=== PATIENT | male | born 1965 | race Caucasian/White ===

== ENCOUNTER 2019-01-20 09:41 | Day surgery (SDC) | payer BC, SELFPAY ==
[2019-01-20] VITALS (7 sets, daily range): BP systolic 97–112; BP diastolic 62–76; PULSE 59–81; RESP 12–16; TEMP 36.4–37.1; O2SAT 94–97; BMI 25.9
[2019-01-20] MEDS: SODIUM CHLORIDE 0.9% 1,000 ML 200 ML IV (10:21)
--- NOTE | 2019-01-20 10:36 | PM.HP.1 ---
History of Present Illness History of Present Illness Date Patient Seen: 01/20/19 Time Patient Seen: 10:36 Chief complaint: [id number] SCREENING COLONOSCOPY Narrative: The patient is a gentleman here for screening colonoscopy due to age. He has never had 1. He is 53 years of age. No family history of colon cancer. Patient History Medical History DVT (deep venous thrombosis) (Acute) Pulmonary embolism (Acute) Social History household members: family Family & Social History Social History: household members family Meds Home Medications and Allergies Home Medications Medication Instructions Recorded Confirmed Type beclomethasone dipropionate 80 mcg INHALATION DAILY 01/20/19 01/20/19 History cetirizine 10 mg PO DAILY 01/20/19 01/20/19 History Allergies Allergy/AdvReac Type Severity Reaction Status Date / Time No Known Drug Allergies Allergy Verified 01/20/19 09:59 Review of Systems Review of Systems ROS Unobtainable: All systems reviewed & are unremarkable except as noted in HPI and below Eyes Comments: Wears glasses Exam Vital Signs (past 8 hours): - 01/20/19 10:02 Temperature 98 F Pulse Rate 63 Respiratory Rate 12 Blood Pressure 109/76 Pulse Oximetry 97 Oxygen Delivery Method Room Air Narrative Exam Narrative: Pleasant cooperative patient no apparent distress. Lungs are clear to auscultation. No rales or rhonchi. Heart regular rate and rhythm no murmur gallop. Abdomen is soft nontender without mass. No obvious hernias. Patient is alert and oriented x3. Assessment & Plan Assessment & Plan narrative: The patient for a screening colonoscopy. I have discussed the procedure with them. Risks of bleeding, perforation which would necessitate major operation, failure to find remove all lesions, the potential tattoo were all discussed. All questions were answered. They wished to proceed.
--- NOTE | 2019-01-20 10:38 | PM.PREOP ---
Pre-operative Note Interval Note History & Physical reviewed/Exam performed by Physician: Yes Changes to H&P: No ASA Class (for procedural sedation): I
--- NOTE | 2019-01-20 10:52 | PM.PREOP ---
Pre-operative Note Interval Note History & Physical reviewed/Exam performed by Physician: Yes Changes to H&P: No ASA Class (for procedural sedation): I
[2019-01-20] MEDS: MIDAZOLAM 5 MG/5 ML VIAL IV (11:15)
--- NOTE | 2019-01-20 11:15 | PM.OP.ENDO ---
Operative Date/Time/Diagnoses Date of procedure: 01/20/19 Time of procedure: 11:15 Pre-op diagnosis: Screening for colon cancer. This is his 1st exam. He is 53. Post-op diagnosis: same (Normal exam) Procedure & Clinicians Study performed: Colonoscopy Same procedure as scheduled: Yes Surgeon: Ramón Laird Procedure Notes SCOAP/Timeout: Perform Procedure in detail: The patient was placed in the left lateral decubitus position and underwent IV sedation directed by the surgeon consisting of fentanyl and Versed. Digital exam was remarkable for mildly enlarged prostate. The scope was inserted and advanced through the rectum into the sigmoid, descending, transverse, and ascending colon. No lesions were seen. The cecum was reached identified by the ileocecal valve and the appendiceal opening. The ileocecal valve was successfully cannulated. The terminal ileum was normal in appearance. The scope was gradually brought out. No Polyps were found. The scope ultimately was retroflexed in the rectum. The appearance was normal go to when. The scope was removed and the patient tolerated the procedure well. The prep was excellent. Scope withdrawal time: 7.5 minutes Sedation minutes: 16 Findings: other findings (Normal exam) Specimen(s): none sent Complications: none Post-procedure Recommendations: Colonscopy in 10 years Follow up: as needed Disposition: PACU
[2019-01-20] MEDS: fentaNYL 250 MCG/5 ML INJ IV (11:17)
== END 2019-01-20 12:01 | disposition home or self-care (01) ==
PROVIDERS: PCP Family Medicine; Visit Provider Specialist
PROC: 0DJD8ZZ Inspection of Lower Intestinal Tract, Via Natural or Artificial Opening Endoscopic (ICD-10-PCS; CPT 45378; principal; 2019-01-20 10:45)
DX: Z12.11 Encounter for screening for malignant neoplasm of colon (principal); Z86.711 Personal history of pulmonary embolism; Z86.718 Personal history of other venous thrombosis and embolism
CPT/HCPCS: 45378; 99152; J2250; J3010

== ENCOUNTER 2020-04-22 15:01 | Emergency (ER) | payer BC, SELFPAY ==
[2020-04-22] VITALS (8 sets, daily range): BP systolic 107–143; BP diastolic 71–83; PULSE 66–72; RESP 11–25; TEMP 36.6; O2SAT 95–100; BMI 25.9
--- NOTE | 2020-04-22 15:09 | ED_ITS ---
HPI - General Adult General Chief complaint: Shortness of Breath/Dyspnea Stated complaint: possible Pulmonary Embolism, sent by doc Time Seen by Provider: 04/22/20 15:01 Source: patient Mode of arrival: Ambulatory Limitations: no limitations History of Present Illness HPI narrative: Patient is a 54-year-old male. Approximately 4 years ago was diagnosed with bilateral pulmonary embolisms in the left lower extremity DVT. He was on anticoagulation for a period of time however has since stopped that treatment. He stated that the very was is that he obtain the DVT and subsequent pulmonary embolisms after having a period of immobility with long travel and a prior injury to his left lower extremity. He also has seasonal allergies. Has seen by an school occupational therapist. Uses inhalers secondary to this. Yesterday was at his school occupational therapist office for evaluation of having dyspnea when he runs. 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 He states it is more than what he would expect for the type of exertion that he is 24th. He also states that this is what he felt like when he had his prior pulmonary embolisms. At the school occupational therapist's office yesterday he had testing performed which showed that his respiratory status was relatively baseline for him. Labs were drawn which was reported to include a D-dimer. The D-dimer was elevated today so he was instructed to come to the emergency department for evaluation. He does have left lower extremity leg swelling occasionally he states this is not new for him. He denies any chest pain. No shortness of breath with regular activities. Related Data Home Medications Medication Instructions Recorded Confirmed beclomethasone dipropionate 80 mcg INHALATION DAILY 01/20/19 01/20/19 cetirizine 10 mg PO DAILY 01/20/19 01/20/19 Previous Rx's Medication Instructions Recorded rivaroxaban [Xarelto] 15 mg PO BID 21 Days #42 tab 04/22/20 Allergies Allergy/AdvReac Type Severity Reaction Status Date / Time No Known Drug Allergies Allergy Verified 01/20/19 09:59 Review of Systems Constitutional Constitutional: Denies fatigue, Denies fever(s) and Denies headache(s) ENT Ears, Nose, Mouth, and Throat: Denies headache(s) Cardiovascular Cardiovascular: Denies chest pain and Reports dyspnea on exertion Respiratory Respiratory: Denies cough and Reports dyspnea on exertion Gastrointestinal Gastrointestinal: Denies abdominal pain, Denies nausea and Denies vomiting Genitourinary Genitourinary: Denies dysuria Genitourinary: Denies dysuria Musculoskeletal Musculoskeletal: Denies arthralgias and Denies myalgias Integumentary/Breasts Skin/Breast: Denies lesions and Denies rash Neurologic Neurologic: Denies behavioral changes and Denies headache(s) Psychiatric Psychiatric: Denies behavioral changes Endocrine Endocrine: Denies fatigue Hematologic/Lymphatic Hematologic/Lymphatic: Denies easy bleeding and Denies easy bruising Allergic/Immunologic Allergic/Immunologic: Denies urticaria Patient History Medical History (Updated 04/22/20 @ 16:59 by Milton Hobbs DO) DVT (deep venous thrombosis) Pulmonary embolism Social History household members: family Smoking Status: Never smoker Exam Initial Vital Signs Initial Vital Signs: Vital Signs Pulse Rate 72 04/22/20 15:05 Blood Pressure 143/83 H 04/22/20 15:05 Pulse Oximetry 99 04/22/20 15:05 Const General: cooperative, healthy appearing, comfortable and well developed Limitations: mental status not altered [facility] Head: normal to inspection and normocephalic Resp Effort & Inspection: normal respiratory effort Auscultation: clear to auscultation bilaterally Cardio Rate: regular rate Rhythm: regular rhythm GI Inspection: non-distended Palpation: soft, No firm and No tender Skin Lesions: no lesions Rashes: no rashes Neuro General: patient alert, patient awake and patient oriented x3 Cognition: normal cognition Speech: speech normal Extrem General: normal to inspection and capillary refill normal Psych Appearance: grossly normal and well kempt Scores GCS Radha coma scale eye opening: Spontaneous [place] coma scale verbal response: Orientated Radha coma scale motor response: Obey commands Radha coma scale total score: 15 Course Orders Ordered: ED Orders 04/22/20 15:13 CT angio chest PE protocol Stat EKG-12 Lead Stat 04/22/20 15:25 Basic Metabolic Panel Stat Complete Blood Count AUTO DIFF Stat NT-proBNP (BNP-Adult 18+) Stat Troponin & CK Cardiac Panel Stat Discontinued Medications Sodium Chloride (Normal Saline 0.9%) 1,000 mls @ 1,000 mls/hr IV BOLUS ONE Stop: 04/22/20 16:11 Last Infusion: 04/22/20 16:39 Dose: 0 mls/hr Documented by: Admin: 04/22/20 15:25 Dose: 1,000 mls/hr Documented by: DANTE Rivaroxaban (Rivaroxaban 10 Mg Tablet) 15 mg PO NOW ONE Stop: 04/22/20 16:57 Vital Signs Vital signs: Vital Signs - 8 hr 04/22/20 15:05 04/22/20 15:15 04/22/20 15:30 Temperature 97.9 F Pulse Rate 72 71 70 Respiratory Rate 18 23 Blood Pressure 143/83 H 143/83 H Pulse Oximetry 99 100 96 04/22/20 15:31 04/22/20 16:02 04/22/20 16:03 Temperature Pulse Rate 72 69 67 Respiratory Rate 22 25 H 11 L Blood Pressure 107/76 107/74 Pulse Oximetry 96 95 98 04/22/20 16:30 Temperature Pulse Rate 66 Respiratory Rate 19 Blood Pressure 107/71 Pulse Oximetry 97 Medical Decision Making Lab Data Lab results reviewed: Yes I reviewed the patient's lab results. Result diagrams: 04/22/20 15:25 04/22/20 15:25 Labs: Lab Results 04/22/20 04/22/20 04/22/20 Range/Units 15:25 15:25 15:25 WBC 7.3 (4.5-11.0) X10^3/uL RBC 4.84 (4.5-5.9) X10^6/uL Hgb 14.5 (13.5-17.5) g/dL Hct 42.8 (41-53) % MCV 88.5 (80-100) fL MCH 30.0 (26-34) PG MCHC 33.9 (30-36) % RDW 13.2 (11.6-14.8) % Plt Count 179 (150-400) X10^3/uL Neut % (Auto) 66.8 (50-75) % Lymph % (Auto) 20.1 L (25-40) % [place] % (Auto) 11.0 (3-14) % Eos % (Auto) 1.7 L (2-4) % Baso % (Auto) 0.4 (0-2) % Neut # (Auto) 4900 (4266-0683) /uL Lymph # (Auto) 1500 (9838-6155) /uL [place] # (Auto) 800 (0-900) /uL Eos # (Auto) 100 (0-450) /uL Baso # (Auto) 0 (0-100) /uL Sodium 137 (137-145) mmol/L Potassium 4.4 (3.4-5.1) mmol/L Chloride 105 (98-107) mmol/L Carbon Dioxide 29 (22-32) mmol/L BUN 22 H (9-20) mg/dL Creatinine 0.92 (0.66-1.25) mg/dL Estimated GFR > 60.0 (>60) mL/min BUN/Creatinine Ratio 23.9 H (6-22) Glucose 109 H (70-100) mg/dL Calcium 9.1 (8.4-10.2) mg/dL Total Creatine Kinase 73 (55-170) U/L CK-MB (CK-2) TNP CK-MB (CK-2) Rel Index TNP Troponin I < 0.012 (0.01-0.034) ng/mL NT-Pro-B Natriuret Pep 46 (<125) pg/mL Imaging Data CT scan - chest: Radiologist's Impression: [address] [id number] Scan ReportSigned Patient: Ramón Meehan KMR#: [id number]: 1965Acct:[id number]/Sex: 54 / MDate of Service: 04/22/20Loc: EDAccession Number: [id number] Procedure: CT angio chest PE protocol Ordering Provider: Milton Hobbs D.O. PROCEDURE: CT ANGIO CHEST PE PROTOCOL INDICATIONS: Chest pain, shortness of breath, tachycardia TECHNIQUE: After the administration of intravenous contrast, 2 mm thick sections acquired from the pulmonary apices to the posterior costophrenic angles. 3-dimensional maximum intensity projection (MIP) coronal and sagittal reformats were then acquired through the thorax. For radiation dose reduction, the following was used: automated exposure control, adjustment of mA and/or kV according to patient size. COMPARISON: [facility], , PVE UNILATERAL LEFT, 09/04/2013, 8:56. [facility], , CHEST 2 VIEW, 12/31/2013, 9:41. FINDINGS: Image quality: Excellent. Pulmonary arteries: Pulmonary arteries are mildly enlarged. There are intraluminal filling defects consistent with central pulmonary embolism involving the right main pulmonary artery, as well as the right and left upper and lower lobe lobar arteries and segmental arteries, the. Lungs and pleura: Mild left basilar infiltrate and atelectasis, suspicious for early pulmonary infarct. No pleural effusions or pneumothorax. Central and peripheral airways are patent. Mediastinum: Heart size is normal, without pericardial effusion. No mediastinal or hilar adenopathy. Thoracic aorta is normal in caliber and enhancement. Esophagus is normal in caliber, without hiatal hernia. Bones and chest wall: No suspicious bony lesions. Ribs and thoracic spine appear intact throughout. There is a prominent Schmorl's node in inferior endplate of T11. Thyroid gland is normal . No axillary or supraclavicular adenopathy. Abdomen: There is a 1.3 x 2.0 cm low-density nodule in segment 6, demonstrating subtle peripheral enhancement suggesting a hemangioma. IMPRESSION: 1. Extensive bilateral pulmonary emboli, involving the right main as well as bilateral lobar and segmental arteries. 2. Mild left lower lobe infiltrate and atelectasis suspicious for early pulmonary infarct. 3. A 1.3 x 2.0 cm low-density nodule in segment 6 of the liver demonstrating subtle peripheral enhancement suggesting a hemangioma. Alternatively, this could be a cyst. A neoplastic nodule is felt less likely. Nonurgent ultrasound follow-up is suggested. The result was discussed with Dr. Hobbs. Dictated by: Isabel Krueger M.D. on 04/22/2020 at 16:08 Approved by: Isabel Krueger M.D. on 04/22/2020 at 16:23 ECG Data Attestation: I personally reviewed and interpreted this ECG as follows: Prior ECG tracings: not available for review Interpretation: Sinus rhythm Ventricular rate is 65 Normal axis Normal QRS Normal QTC Early repolarization MDM Narrative Medical decision making narrative: Patient does have what appear to be new bilateral pulmonary embolisms. Is the 2nd time that this has happened to him. States the last time they had a difficult time keeping his INR within therapeutic range so he was switched to Xarelto. He would like to just start with Xarelto today his troponin was negative. BNP was negative. He is not dyspneic when he is walking around. He has no chest pain. His only symptoms occur when he is running up a hill. I feel patient can be discharged home to follow-up with his primary doctor. He has a PESI score of 63 which is very low risk. Patient was given a 1st dose of Xarelto here in the emergency department prescription for the next 21 days. He is informed that he needed a talk with his primary doctor about a prescription for the 1 time a day dosing. He is g sofíaalexx return precautions. He expressed understanding and agreement. Discharge Plan Departure Patient Disposition: Home Clinical Impression: Liver nodule Pulmonary embolism Qualifiers: Pulmonary embolism type: unspecified Chronicity: acute Acute cor pulmonale presence: without acute cor pulmonale Qualified Code(s): I26.99 - Other pulmonary embolism without acute cor pulmonale Instructions: DI for Pulmonary Embolism Activity Restrictions/Additional Instructions: The current prescription for Xarelto should be taken 2 times a day for the next 21 days. After that the dosage will change and it will be taking only 1 time a day. Please follow-up with your primary doctor so that to the new 1 time a day dosage can be ordered. There is also an incidental finding of a liver nodule on your CT scan. Please contact your primary doctor for follow-up of this. Return to the emergency department for any new or worsening symptoms Prescriptions: New Xarelto 15 mg tablet 15 mg PO BID 21 Days Qty: 42 RF: 0 No Action cetirizine 10 mg Tablet 10 mg PO DAILY RF: 0 beclomethasone dipropionate 80 mcg/actuation Hfa Aerosol Breath Activated 80 mcg INHALATION DAILY RF: 0 Referrals: Barbara Hassan MD [Primary Care Provider] -
--- NOTE | 2020-04-22 15:13 | DI.CT.S_ITS ---
PROCEDURE: CT ANGIO CHEST PE PROTOCOL INDICATIONS: Chest pain, shortness of breath, tachycardia TECHNIQUE: After the administration of intravenous contrast, 2 mm thick sections acquired from the pulmonary apices to the posterior costophrenic angles. 3-dimensional maximum intensity projection (MIP) coronal and sagittal reformats were then acquired through the thorax. For radiation dose reduction, the following was used: automated exposure control, adjustment of mA and/or kV according to patient size. COMPARISON: [facility], , PVE UNILATERAL LEFT, 09/04/2013, 8:56. [facility], , CHEST 2 VIEW, 12/31/2013, 9:41. FINDINGS: Image quality: Excellent. Pulmonary arteries: Pulmonary arteries are mildly enlarged. There are intraluminal filling defects consistent with central pulmonary embolism involving the right main pulmonary artery, as well as the right and left upper and lower lobe lobar arteries and segmental arteries, the. Lungs and pleura: Mild left basilar infiltrate and atelectasis, suspicious for early pulmonary infarct. No pleural effusions or pneumothorax. Central and peripheral airways are patent. Mediastinum: Heart size is normal, without pericardial effusion. No mediastinal or hilar adenopathy. Thoracic aorta is normal in caliber and enhancement. Esophagus is normal in caliber, without hiatal hernia. Bones and chest wall: No suspicious bony lesions. Ribs and thoracic spine appear intact throughout. There is a prominent Schmorl's node in inferior endplate of T11. Thyroid gland is normal . No axillary or supraclavicular adenopathy. Abdomen: There is a 1.3 x 2.0 cm low-density nodule in segment 6, demonstrating subtle peripheral enhancement suggesting a hemangioma. IMPRESSION: 1. Extensive bilateral pulmonary emboli, involving the right main as well as bilateral lobar and segmental arteries. 2. Mild left lower lobe infiltrate and atelectasis suspicious for early pulmonary infarct. 3. A 1.3 x 2.0 cm low-density nodule in segment 6 of the liver demonstrating subtle peripheral enhancement suggesting a hemangioma. Alternatively, this could be a cyst. A neoplastic nodule is felt less likely. Nonurgent ultrasound follow-up is suggested. The result was discussed with Dr. Hobbs. Dictated by: Isabel Krueger M.D. on 04/22/2020 at 16:08 Approved by: Isabel Krueger M.D. on 04/22/2020 at 16:23
[2020-04-22] MEDS: SODIUM CHLORIDE 0.9% 1,000 ML 1000 ML IV (15:25)
[2020-04-22 15:36] LABS: Add Manual Diff / Slide Review NO; Basophils Absolute Auto 0 /uL (0-100); Basophils Percent Auto 0.4 % (0-2); Eosinophils Absolute Auto 100 /uL (0-450); Eosinophils Percent Auto 1.7 % (2-4); Hematocrit 42.8 % (41-53); Hemoglobin 14.5 g/dL (13.5-17.5); Lymphocytes Absolute Auto 1500 /uL (1100-4500); Lymphocytes Percent Auto 20.1 % (25-40); Mean Corpuscular HGB Conc 33.9 % (30-36); Mean Corpuscular Volume 88.5 fL (80-100); Monocytes Absolute Auto 800 /uL (0-900); Neutrophils Absolute Auto 4900 /uL (1500-7000); Neutrophils Percent Auto 66.8 % (50-75); Platelet Count 179 X10^3/uL (150-400); Red Blood Cell Count 4.84 X10^6/uL (4.5-5.9); Red Cell Distribution Width 13.2 % (11.6-14.8); White Blood Cell Count 7.3 X10^3/uL (4.5-11.0)
[2020-04-22 15:48] LABS: Creatine Kinase 73 U/L (55-170)
[2020-04-22 15:49] LABS: BUN Creatinine Ratio 23.9 (6-22); Blood Urea Nitrogen 22 mg/dL (9-20); Calcium 9.1 mg/dL (8.4-10.2); Carbon Dioxide 29 mmol/L (22-32); Chloride 105 mmol/L (98-107); Estimated Glomerular Filt Rate > 60.0 mL/min (>60); Glucose 109 mg/dL (70-100); HEMOLYSIS 31 (0-50); Potassium 4.4 mmol/L (3.4-5.1); Sodium 137 mmol/L (137-145)
[2020-04-22 16:01] LABS: NT-proBNP (BNP-Adult 18+) 46 pg/mL (<125); Troponin I < 0.012 ng/mL (0.01-0.034)
[2020-04-22] MEDS: RIVAROXABAN 10 MG TABLET 15 MG PO (17:06)
== END 2020-04-22 17:11 | disposition home or self-care (01) ==
PROVIDERS: Emergency Provider Emergency Medicine; PCP Family Medicine
DX: I26.99 Other pulmonary embolism without acute cor pulmonale (principal); I82.402 Acute embolism and thrombosis of unspecified deep veins of left lower extremity; K76.89 Other specified diseases of liver
CPT/HCPCS: 36415; 71275; 80048; 82550; 83880; 84484; 85025; 93005; 93010; 96360; 99284

== ENCOUNTER → 2021-07-31 08:23 | Outpatient (CLI) | payer BC, SELFPAY ==
[2021-07-31 08:55] LABS: BUN Creatinine Ratio 20.6 (6-22); Blood Urea Nitrogen 21 mg/dL (9-20); Calcium 8.9 mg/dL (8.4-10.2); Carbon Dioxide 29 mmol/L (22-32); Chloride 109 mmol/L (98-107); Estimated Glomerular Filt Rate > 60.0 mL/min (>60); Glucose 102 mg/dL (70-100); HEMOLYSIS < 15 (0-50); Potassium 4.4 mmol/L (3.4-5.1); Sodium 139 mmol/L (137-145)
== END ==
PROVIDERS: PCP Family Medicine; Referring Provider Internal Medicine Hematology; Visit Provider Internal Medicine Hematology
DX: Z86.711 Personal history of pulmonary embolism (principal)
CPT/HCPCS: 36415; 80048

== ENCOUNTER → 2021-12-21 09:22 | Outpatient (CLI) | payer BC, SELFPAY ==
[2021-12-21 15:13] LABS: Alanine Aminotransferase 24 IU/L (<50); Albumin Globulin Ratio 1.3 (1.0-2.8); Alkaline Phosphatase 68 U/L (38-126); Aspartate Aminotransferase 27 IU/L (17-59); BUN Creatinine Ratio 14.6 (6-22); Bilirubin Total 0.4 mg/dL (0.2-1.3); Blood Urea Nitrogen 15 mg/dL (9-20); Calcium 9.2 mg/dL (8.4-10.2); Carbon Dioxide 31 mmol/L (22-32); Chloride 106 mmol/L (98-107); Cholesterol 187 mg/dL (140-199); Estimated Glomerular Filt Rate > 60 mL/min (>60); Globulin 3.1 g/dL (1.7-4.1); Glucose 99 mg/dL (70-100); HDL Cholesterol 52 mg/dL (40-60); HEMOLYSIS < 15 (0-50); LDL Cholesterol Calculated 122 mg/dL (<100); Potassium 4.6 mmol/L (3.4-5.1); Sodium 139 mmol/L (137-145); Total Protein 7.1 g/dL (6.3-8.2); Triglycerides 63 mg/dL (35-150)
[2021-12-21 15:41] LABS: Prostate Specific Antigen Scrn 0.406 ng/mL (0.1-4.0)
== END ==
PROVIDERS: PCP Physician Assistant; Referring Provider Physician Assistant; Visit Provider Physician Assistant
DX: L50.8 Other urticaria (principal); Z12.5 Encounter for screening for malignant neoplasm of prostate
CPT/HCPCS: 36415; 80053; 80061; G0103

== ENCOUNTER → 2022-07-25 10:39 | Outpatient (CLI) | payer BC, SELFPAY ==
[2022-07-25 19:36] LABS: BUN Creatinine Ratio 18.1 (6-22); Blood Urea Nitrogen 19 mg/dL (9-20); Calcium 9.4 mg/dL (8.4-10.2); Carbon Dioxide 29 mmol/L (22-32); Chloride 104 mmol/L (98-107); Estimated Glomerular Filt Rate > 60 mL/min (>60); Glucose 87 mg/dL (70-100); HEMOLYSIS < 15 (0-50); Potassium 4.5 mmol/L (3.4-5.1); Sodium 140 mmol/L (137-145)
== END ==
PROVIDERS: PCP Physician Assistant; Visit Provider Internal Medicine Hematology
DX: I82.90 Acute embolism and thrombosis of unspecified vein (principal)
CPT/HCPCS: 80048

== ENCOUNTER 2023-02-17 04:17 | Emergency (ER) | payer BC, SELFPAY ==
[2023-02-17] VITALS (13 sets, daily range): BP systolic 99–129; BP diastolic 52–66; PULSE 42–61; RESP 9–21; TEMP 37; O2SAT 93–100; BMI 26.2
--- NOTE | 2023-02-17 04:57 | DI.CT.S_ITS ---
PROCEDURE: CT ABDOMEN PELVIS W CON INDICATIONS: Epigastric pain. TECHNIQUE: After the administration of oral and IV contrast, axial sections were acquired from the lung bases to the pubic symphysis. Coronal and sagittal reformats were performed. For radiation dose reduction, the following was used: automated exposure control, adjustment of mA and/or kV according to patient size. COMPARISON: [facility], CT, CT ANGIO CHEST PE PROTOCOL, 04/22/2020, 15:39. [facility], US, US ABDOMEN LIMITED, 02/17/2023, 7:12. FINDINGS: Image quality: Excellent. Lung bases: Unremarkable. Heart: No significant findings. ABDOMEN: Liver: An enlarged, mildly fatty liver is seen. No suspicious liver lesion is seen. Gallbladder: Minimal irregularity is seen in the gallbladder. Biliary ducts: Unremarkable. Pancreas: Unremarkable. Spleen: Unremarkable. Adrenal Glands: Unremarkable. Kidneys and Ureters: Unremarkable. Stomach and Bowel: Stomach, small bowel loops, and colon are unremarkable. A normal appendix is noted. Colonic diverticulosis is seen, without findings of active diverticulitis. Peritoneum: No abnormal intraperitoneal fluid. No free air. Ventral Wall: No hernia. Abdominal Nodes: No retroperitoneal or mesenteric adenopathy by size criteria. Vessels: Aorta and inferior vena cava are normal in size. PELVIS: Pelvic Organs: Unremarkable. Bladder: Unremarkable. Pelvic Nodes: No enlarged lymph nodes. Miscellaneous: No inguinal hernias are seen. Bones: Minimal focal L5-S1 degenerative change is seen, with milder degenerative changes seen elsewhere. IMPRESSION: Minimal irregularity is seen of the gallbladder. Additional findings: Normal appendix Diverticulosis, without active diverticulitis Minimal focal L5-S1 degenerative change Note: No significant discrepancy from the preliminary report. Dictated by: Gera Harp M.D. on 02/17/2023 at 9:04 Approved by: Gera Harp M.D. on 02/17/2023 at 9:08
[2023-02-17 05:01] LABS: Add Manual Diff / Slide Review NO; Basophils Absolute Auto 0 /uL (0-100); Basophils Percent Auto 0.5 % (0-2); Eosinophils Absolute Auto 0 /uL (0-450); Eosinophils Percent Auto 0.3 % (2-4); Hematocrit 38.7 % (41-53); Hemoglobin 13.4 g/dL (13.5-17.5); Lymphocytes Absolute Auto 1000 /uL (1100-4500); Lymphocytes Percent Auto 16.6 % (25-40); Mean Corpuscular HGB Conc 34.7 % (30-36); Mean Corpuscular Hemoglobin 30.2 PG (26-34); Monocytes Absolute Auto 400 /uL (0-900); Monocytes Percent Auto 6.1 % (3-14); Neutrophils Absolute Auto 4600 /uL (1500-7000); Neutrophils Percent Auto 76.5 % (50-75); Platelet Count 216 X10^3/uL (150-400); Red Blood Cell Count 4.45 X10^6/uL (4.5-5.9); Red Cell Distribution Width 13.2 % (11.6-14.8); White Blood Cell Count 6.1 X10^3/uL (4.5-11.0)
[2023-02-17] MEDS: ONDANSETRON 4 MG/2 ML INJ IV (05:08)
[2023-02-17] MEDS: HYDROMORPHONE 1 MG INJ IV (05:09)
[2023-02-17 05:10] LABS: Alanine Aminotransferase 51 IU/L (<50); Albumin 3.8 g/dL (3.5-5.0); Albumin Globulin Ratio 1.2 (1.0-2.8); Alkaline Phosphatase 64 U/L (38-126); Aspartate Aminotransferase 50 IU/L (17-59); BUN Creatinine Ratio 23.8 (6-22); Bilirubin Total 0.5 mg/dL (0.2-1.3); Blood Urea Nitrogen 24 mg/dL (9-20); Calcium 9.4 mg/dL (8.4-10.2); Carbon Dioxide 21 mmol/L (22-32); Chloride 107 mmol/L (98-107); Estimated Glomerular Filt Rate > 60 mL/min (>60); Globulin 3.1 g/dL (1.7-4.1); Glucose 135 mg/dL (70-100); HEMOLYSIS 40 (0-50); Lipase 72 U/L (23-300); Potassium 4.1 mmol/L (3.4-5.1); Sodium 137 mmol/L (137-145); Total Protein 6.9 g/dL (6.3-8.2)
--- NOTE | 2023-02-17 05:49 | ED_ITS ---
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 Reports that he was feeling fine ate same dinner however he feeling nauseous and having uncontrolled abdominal pain. He denies any flank pain. No actual vomiting no chest pain no change in bowel habits. Related Data Home Medications Medication Instructions Recorded Confirmed beclomethasone dipropionate 80 80 mcg inhalation DAILY 01/20/19 12/05/21 mcg/actuation HFA breath activated aerosol rivaroxaban 10 mg tablet 10 mg PO DAILY 12/04/21 12/05/21 omalizumab 150 mg/mL subcutaneous 150 mg SUBCUT Q6W 12/05/21 12/05/21 syringe Previous Rx's Medication Instructions Recorded atovaquone 250 mg-proguanil 100 mg See Rx Instructions PO .COMPLEX 12/05/21 tablet #30 tabs scopolamine base 1 mg over 3 days 1 patch transdermal Q3D PRN motion 04/03/22 transdermal patch sickness #24 ea hydrocodone 5 mg-acetaminophen 325 1 tab PO Q6H PRN pain #10 tabs 02/17/23 mg tablet ondansetron 4 mg disintegrating 4 mg PO Q8H PRN nausea and 02/17/23 tablet vomiting #10 tabs Allergies Allergy/AdvReac Type Severity Reaction Status Date / Time No Known Drug Allergies Allergy Verified 01/20/19 09:59 Review of Systems <Grecia Krishnamurthy DO - Last Filed: 02/18/23 03:16> Review of Systems ROS Unobtainable: All systems reviewed & are unremarkable except as noted in HPI and below Patient History <Grecia Krishnamurthy DO - Last Filed: 02/18/23 03:16> Medical History Screening for ischemic heart disease Screening for lipid disorders Screening PSA (prostate specific antigen) Encounter for medical examination to establish care (~04/25/18) Encounter for screening colonoscopy Travel advice encounter Pulmonary embolism DVT (deep venous thrombosis) Social History household members: family Smoking Status: Never smoker Smoking Status: Never smoker alcohol intake frequency: a few times a month Substance Use Type: does not use Exam <Grecia Krishnamurthy DO - Last Filed: 02/18/23 03:16> Initial Vital Signs Initial Vital Signs: Vital Signs Temperature 98.6 F 02/17/23 04:26 Pulse Rate 49 L 02/17/23 04:26 Respiratory Rate 18 02/17/23 04:26 Blood Pressure 129/61 02/17/23 04:26 Pulse Oximetry 100 02/17/23 04:26 Oxygen Delivery Method Room Air 02/17/23 04:26 GENERAL: Alert 57-year-old male appears uncomfortable HEENT: Head atraumatic,EOMI, pupils reactive, face symmetric, moist mucous membranes CARDIOVASCULAR: Regular rate and rhythm without murmurs, rubs or gallops. RESPIRATORY: Breath sounds equal bilaterally, no wheezes rales or rhonchi. ABDOMEN: Soft, mild lower abdominal discomfort no rebound no distention : No CVA tenderness EXTREMITIES: Normal range of motion, no clubbing or edema. Neurovascularly intact NEUROLOGICAL: Alert and oriented x4.Normal gait and speech. SKIN: Warm, dry, no laceration, no petechiae, no rashes or lesions. <Moon Diallo MD - Last Filed: 02/17/23 09:41> Initial Vital Signs Initial Vital Signs: Vital Signs Temperature 98.6 F 02/17/23 04:26 Pulse Rate 49 L 02/17/23 04:26 Respiratory Rate 18 02/17/23 04:26 Blood Pressure 129/61 02/17/23 04:26 Pulse Oximetry 100 02/17/23 04:26 Oxygen Delivery Method Room Air 02/17/23 04:26 Course <Grecia Krishnamurthy DO - Last Filed: 02/18/23 03:16> Orders Ordered: Discontinued Medications Hydromorphone HCl (Hydromorphone 1 Mg Inj) 1 mg IV NOW ONE Stop: 02/17/23 04:52 Last Admin: 02/17/23 05:09 Dose: 1 mg Documented By: GC Ketorolac Tromethamine (Ketorolac 30 Mg/Ml Vial) 15 mg IV NOW ONE Stop: 02/17/23 09:39 Last Admin: 02/17/23 09:50 Dose: 15 mg Documented By: SHAHLA Ondansetron HCl (Ondansetron 4 Mg/2 Ml Inj) 4 mg IV NOW ONE Stop: 02/17/23 04:52 Last Admin: 02/17/23 05:08 Dose: 4 mg Documented By: RODNEY Vital Signs Vital signs: Vital Signs - 8 hr 02/17/23 04:26 02/17/23 05:33 02/17/23 05:35 Temperature 98.6 F Pulse Rate 49 L 46 L 48 L Respiratory Rate 18 9 L Blood Pressure 129/61 Pulse Oximetry 100 94 93 Oxygen Delivery Method Room Air 02/17/23 05:35 02/17/23 06:00 02/17/23 06:00 Temperature Pulse Rate 53 L Respiratory Rate 17 Blood Pressure 109/60 101/62 Pulse Oximetry 95 Oxygen Delivery Method 02/17/23 06:41 02/17/23 06:42 02/17/23 06:42 Temperature Pulse Rate 42 L 47 L Respiratory Rate Blood Pressure 119/65 Pulse Oximetry 100 100 Oxygen Delivery Method 02/17/23 07:00 02/17/23 07:00 02/17/23 07:33 Temperature Pulse Rate 49 L 61 Respiratory Rate 21 21 Blood Pressure 112/66 Pulse Oximetry 97 Oxygen Delivery Method 02/17/23 07:35 02/17/23 07:35 Temperature Pulse Rate 45 L Respiratory Rate 13 Blood Pressure 118/62 Pulse Oximetry Oxygen Delivery Method <Moon Diallo MD - Last Filed: 02/17/23 09:41> Orders Ordered: Discontinued Medications Hydromorphone HCl (Hydromorphone 1 Mg Inj) 1 mg IV NOW ONE Stop: 02/17/23 04:52 Last Admin: 02/17/23 05:09 Dose: 1 mg Documented By: RODNEY Ketorolac Tromethamine (Ketorolac 30 Mg/Ml Vial) 15 mg IV NOW ONE Stop: 02/17/23 09:39 Last Admin: 02/17/23 09:50 Dose: 15 mg Documented By: SHAHLA Ondansetron HCl (Ondansetron 4 Mg/2 Ml Inj) 4 mg IV NOW ONE Stop: 02/17/23 04:52 Last Admin: 02/17/23 05:08 Dose: 4 mg Documented By: GC Vital Signs Vital signs: Vital Signs - 8 hr 02/17/23 04:26 02/17/23 05:33 02/17/23 05:35 Temperature 98.6 F Pulse Rate 49 L 46 L 48 L Respiratory Rate 18 9 L Blood Pressure 129/61 Pulse Oximetry 100 94 93 Oxygen Delivery Method Room Air 02/17/23 05:35 02/17/23 06:00 02/17/23 06:00 Temperature Pulse Rate 53 L Respiratory Rate 17 Blood Pressure 109/60 101/62 Pulse Oximetry 95 Oxygen Delivery Method 02/17/23 06:41 02/17/23 06:42 02/17/23 06:42 Temperature Pulse Rate 42 L 47 L Respiratory Rate Blood Pressure 119/65 Pulse Oximetry 100 100 Oxygen Delivery Method 02/17/23 07:00 02/17/23 07:00 02/17/23 07:33 Temperature Pulse Rate 49 L 61 Respiratory Rate 21 21 Blood Pressure 112/66 Pulse Oximetry 97 Oxygen Delivery Method 02/17/23 07:35 02/17/23 07:35 Temperature Pulse Rate 45 L Respiratory Rate 13 Blood Pressure 118/62 Pulse Oximetry Oxygen Delivery Method MDM - Abdominal Pain <Grecia Krishnamurthy, DO - Last Filed: 02/18/23 03:16> Lab Data 02/17/23 04:35 02/17/23 04:35 Labs: Lab Results 02/17/23 Range/Units 04:35 WBC 6.1 (4.5-11.0) X10^3/uL RBC 4.45 L (4.5-5.9) X10^6/uL Hgb 13.4 L (13.5-17.5) g/dL Hct 38.7 L (41-53) % MCV 87.0 (80-100) fL MCH 30.2 (26-34) PG MCHC 34.7 (30-36) % RDW 13.2 (11.6-14.8) % Plt Count 216 (150-400) X10^3/uL Neut % (Auto) 76.5 H (50-75) % Lymph % (Auto) 16.6 L (25-40) % Nicollet % (Auto) 6.1 (3-14) % Eos % (Auto) 0.3 L (2-4) % Baso % (Auto) 0.5 (0-2) % Neut # (Auto) 4600 (4279-2665) /uL Lymph # (Auto) 1000 L (3973-6948) /uL Nicol[place] # (Auto) 400 (0-900) /uL Eos # (Auto) 0 (0-450) /uL Baso # (Auto) 0 (0-100) /uL Sodium 137 (137-145) mmol/L Potassium 4.1 (3.4-5.1) mmol/L Chloride 107 (98-107) mmol/L Carbon Dioxide 21 L (22-32) mmol/L BUN 24 H (9-20) mg/dL Creatinine 1.01 (0.66-1.25) mg/dL Estimated GFR > 60 (>60) mL/min BUN/Creatinine Ratio 23.8 H (6-22) Glucose 135 H (70-100) mg/dL Calcium 9.4 (8.4-10.2) mg/dL Total Bilirubin 0.5 (0.2-1.3) mg/dL AST 50 (17-59) IU/L ALT 51 H (<50) IU/L Alkaline Phosphatase 64 (38-126) U/L Total Protein 6.9 (6.3-8.2) g/dL Albumin 3.8 (3.5-5.0) g/dL Globulin 3.1 (1.7-4.1) g/dL Albumin/Globulin Ratio 1.2 (1.0-2.8) Lipase 72 (23-300) U/L Point of care testing: Urine Dip Bedside Urine Glucose Negative Bedside Urine Bilirubin - Negative Bedside Urine Ketone + 15 Urine Specific [place] 1.005 Bedside Urine Occult Blood - Negative Bedside Urine pH 7.5 Bedside Urine Protein - Negative Bedside Urine Urobilinogen - Negative Bedside Urine Nitrite - Negative Bedside Urine Leukocytes - Negative Esterase MDM Narrative Medical decision making narrative: Patient 57-year-old male 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 Nursing reports no he was riding in pain however by the time I evaluated him he has received pain in his overall much more comfortable. Blood work has been reviewed and is overall reassuring. Bicarb slightly low at 21. Liver enzymes bilirubin within normal limits. No NOMAN. CT is pending Patient signed out to Dr. Diallo <Moon Diallo MD - Last Filed: 02/17/23 09:41> Lab Data Labs: Lab Results 02/17/23 Range/Units 04:35 WBC 6.1 (4.5-11.0) X10^3/uL RBC 4.45 L (4.5-5.9) X10^6/uL Hgb 13.4 L (13.5-17.5) g/dL Hct 38.7 L (41-53) % MCV 87.0 (80-100) fL MCH 30.2 (26-34) PG MCHC 34.7 (30-36) % RDW 13.2 (11.6-14.8) % Plt Count 216 (150-400) X10^3/uL Neut % (Auto) 76.5 H (50-75) % Lymph % (Auto) 16.6 L (25-40) % Nicollet % (Auto) 6.1 (3-14) % Eos % (Auto) 0.3 L (2-4) % Baso % (Auto) 0.5 (0-2) % Neut # (Auto) 4600 (0151-3542) /uL Lymph # (Auto) 1000 L (7948-6144) /uL Nicollet # (Auto) 400 (0-900) /uL Eos # (Auto) 0 (0-450) /uL Baso # (Auto) 0 (0-100) /uL Sodium 137 (137-145) mmol/L Potassium 4.1 (3.4-5.1) mmol/L Chloride 107 (98-107) mmol/L Carbon Dioxide 21 L (22-32) mmol/L BUN 24 H (9-20) mg/dL Creatinine 1.01 (0.66-1.25) mg/dL Estimated GFR > 60 (>60) mL/min BUN/Creatinine Ratio 23.8 H (6-22) Glucose 135 H (70-100) mg/dL Calcium 9.4 (8.4-10.2) mg/dL Total Bilirubin 0.5 (0.2-1.3) mg/dL AST 50 (17-59) IU/L ALT 51 H (<50) IU/L Alkaline Phosphatase 64 (38-126) U/L Total Protein 6.9 (6.3-8.2) g/dL Albumin 3.8 (3.5-5.0) g/dL Globulin 3.1 (1.7-4.1) g/dL Albumin/Globulin Ratio 1.2 (1.0-2.8) Lipase 72 (23-300) U/L Point of care testing: Urine Dip Bedside Urine Glucose Negative Bedside Urine Bilirubin - Negative Bedside Urine Ketone + 15 Urine Specific [place] 1.005 Bedside Urine Occult Blood - Negative Bedside Urine pH 7.5 Bedside Urine Protein - Negative Bedside Urine Urobilinogen - Negative Bedside Urine Nitrite - Negative Bedside Urine Leukocytes - Negative Esterase MDM Narrative Medical decision making narrative: Patient 57-year-old male 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 Nursing reports no he was riding in pain however by the time I evaluated him he has received pain in his overall much more comfortable. Blood work has been reviewed and is overall reassuring. Bicarb slightly low at 21. Liver enzymes bilirubin within normal limits. No NOMAN. CT is pending Patient signed out to Dr. Diallo Patient is independently examined, labs reviewed studies reviewed CC: Abdominal pain Complicating co-morbidities: Prior pulmonary embolism Differential considered: Bowel obstruction, constipation, urinary tract infection, kidney stone, pancreatitis, gallbladder disease. 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 Pertinent findings: CBC is unremarkable Chemistries show slight increased ALT at 51 remainder of liver studies are unremarkable. Kidney function is appropriate. BUN is slightly elevated Imaging studies independently reviewed: CT suggest possible early acute cholecystitis. No other acute processes are appreciated Ultrasound demonstrates a nondilated gallbladder without stones or sludge and normal gallbladder wall thickness without any pericholecystic fluid. Consultations: Treatments: Parenteral Dilaudid Zofran and Toradol Re-evaluations: 930 patient is re-evaluated. Abdomen is still slightly tender but certainly not surgical. Heart and lungs are benign. He notes that he feels some mild discomfort but certainly not as much as previously. Notes that he did have 4 episodes of very loose stool not described as watery diarrhea. When we discussed the possibility of zoonotic infections he notes that he is the majority of diarrhea associated with some of the common diagnoses and this seems quite a bit different and not nearly as severe. He is tolerating liquids at time of discharge Discussion: We discussed options. In light of pain essentially controlled no evidence of diverticulitis, appendicitis, bowel obstruction, acute colitis, cholecystitis, pancreatitis will opt to have him go home. Will give him a prescription of Zofran to use if needed. Will hold on additional pain medications with suggestions to return to the emergency department if pain does increase. [place] [facility] [place] worsen. All findings reviewed with both patient and his and with shared decision-making we all felt that this was a safe and reasonable plan for discharge. Discharge Plan Departure Patient Disposition: Home Clinical Impression: Abdominal pain Qualifiers: Abdominal location: generalized Qualified Code(s): R10.84 - Generalized abdominal pain Instructions: DI for Abdominal Pain-Adult Activity Restrictions/Additional Instructions: Thank you for coming in I am sorry that you are experiencing such severe abdominal pain. Fortunately, I did not find any life-threatening abnormalities on your workup. Specifically, there is no evidence of bacterial infection, you do not have acute gallbladder disease, there is no appendicitis, colitis, diverticulitis or other bowel abnormality. At this time all of the life-threatening and acute surgical diagnoses have been ruled out. I am going to suggest that you go home. I will send you home with a small prescription for Zofran to help with nausea should that recur. I am specifically not going to send you home with any additional pain medication. If you have recurrent pain, fevers any blood in your stool or new findings you do need to return to the emergency department for further evaluation Prescriptions: New ondansetron 4 mg tablet,disintegrating 4 mg PO Q8H PRN (Reason: nausea and vomiting) Qty: 10 0RF No Action scopolamine base 1 mg over 3 days patch 3 day 1 patch transdermal Q3D PRN (Reason: motion sickness) Qty: 24 0RF beclomethasone dipropionate 80 mcg/actuation Hfa Aerosol Breath Activated 80 mcg INHALATION DAILY Rx Instructions: 2 puffs hydrocodone-acetaminophen 5-325 mg tablet 1 tab PO Q6H PRN (Reason: pain) Qty: 10 0RF omalizumab 150 mg/mL syringe 150 mg SUBCUT Q6W atovaquone-proguanil 250-100 mg tablet See Rx Instructions PO .COMPLEX Qty: 30 0RF Rx Instructions: take 1 tab once daily x1 day before exposure, during time in area, and x7 days after leaving area PO rivaroxaban 10 mg tablet 10 mg PO DAILY Rx Instructions: Take 1 tablet (10 mg) by mouth daily. REFILL 3. 06/12/2021 Referrals: Sonam Cisse PA-C [Primary Care Provider] - Stand Alone Forms: Patient Portal/API
--- NOTE | 2023-02-17 06:58 | DI.US.S_ITS ---
PROCEDURE: US ABDOMEN LIMITED INDICATIONS: CT demonstrates possible cholecystitis TECHNIQUE: Real-time scanning was performed of the abdominal, with image documentation. COMPARISON: [facility], CT, CT ABDOMEN PELVIS W CON, 02/17/2023, 6:24. FINDINGS: Liver: Measures 15.8 cm in length. Echogenicity is within normal limits. Benign cyst in the right lobe measuring 2.6 cm. Gallbladder: Nondilated. No stones or sludge. Normal gallbladder wall thickness. No pericholecystic fluid. Negative sonographic Mensah's sign. Biliary ducts: Intrahepatic bile ducts are non-dilated. Extrahepatic bile duct caliber measures 5 mm. Normal is 6-7 mm or less in diameter, or 10 mm or less post-cholecystectomy. Pancreas: Not well seen. IMPRESSION: No acute cholecystitis. No gallstones. Dictated by: Ramin Perez M.D. on 02/17/2023 at 7:29 Approved by: Ramin Perez M.D. on 02/17/2023 at 7:32
[2023-02-17] MEDS: KETOROLAC 30 MG/ML VIAL 15 MG IV (09:50)
--- NOTE | 2023-02-17 09:53 | PC.NURSE ---
Pt states he has a low HR at baseline, states it's common to be 38-44 HR he runs regularly and is very fit.
== END 2023-02-17 09:55 | disposition home or self-care (01) ==
PROVIDERS: Emergency Provider Emergency Medicine; PCP Physician Assistant
DX: R10.84 Generalized abdominal pain (principal); R10.9 Unspecified abdominal pain
CPT/HCPCS: 36415; 74177; 76705; 80053; 81003; 83690; 85025; 85610; 93005; 96374; 96375; 99284; J1170; J1885; J2405; Q9967

== ENCOUNTER 2023-02-17 20:19 | Emergency (ER) | payer BC, SELFPAY ==
[2023-02-17 20:31] VITALS: BP 132/91; PULSE 49; RESP 16; TEMP 36.7; O2SAT 100; BMI 26.2
[2023-02-17] MEDS: ONDANSETRON 4 MG/2 ML INJ IV (21:13)
[2023-02-17] MEDS: HYDROMORPHONE 1 MG INJ IV (21:14)
[2023-02-17] MEDS: KETOROLAC 30 MG/ML VIAL 15 MG IV (21:14)
[2023-02-17 21:16] LABS: INR 1.6 (0.9-1.3); Prothrombin Time 18.3 SECONDS (10.1-12.7)
[2023-02-17 21:21] LABS: Alanine Aminotransferase 39 IU/L (<50); Albumin 3.6 g/dL (3.5-5.0); Albumin Globulin Ratio 1.2 (1.0-2.8); Alkaline Phosphatase 62 U/L (38-126); Aspartate Aminotransferase 28 IU/L (17-59); BUN Creatinine Ratio 14.9 (6-22); Bilirubin Total 0.5 mg/dL (0.2-1.3); Blood Urea Nitrogen 14 mg/dL (9-20); Calcium 9.6 mg/dL (8.4-10.2); Carbon Dioxide 21 mmol/L (22-32); Chloride 105 mmol/L (98-107); Estimated Glomerular Filt Rate > 60 mL/min (>60); Glucose 110 mg/dL (70-100); HEMOLYSIS < 15 (0-50); Lipase 61 U/L (23-300); Potassium 3.3 mmol/L (3.4-5.1); Sodium 134 mmol/L (137-145); Total Protein 6.6 g/dL (6.3-8.2)
[2023-02-17 21:24] LABS: Add Manual Diff / Slide Review NO; Basophils Absolute Auto 0 /uL (0-100); Basophils Percent Auto 0.3 % (0-2); Eosinophils Absolute Auto 0 /uL (0-450); Eosinophils Percent Auto 0.7 % (2-4); Hematocrit 38.1 % (41-53); Hemoglobin 13.1 g/dL (13.5-17.5); Lymphocytes Absolute Auto 1500 /uL (1100-4500); Lymphocytes Percent Auto 23.4 % (25-40); Mean Corpuscular HGB Conc 34.5 % (30-36); Mean Corpuscular Hemoglobin 30.3 PG (26-34); Mean Corpuscular Volume 87.8 fL (80-100); Monocytes Absolute Auto 800 /uL (0-900); Monocytes Percent Auto 11.9 % (3-14); Neutrophils Absolute Auto 4100 /uL (1500-7000); Neutrophils Percent Auto 63.7 % (50-75); Platelet Count 226 X10^3/uL (150-400); Red Blood Cell Count 4.34 X10^6/uL (4.5-5.9); White Blood Cell Count 6.4 X10^3/uL (4.5-11.0)
[2023-02-17 23:16] VITALS: BP 104/64; PULSE 55; RESP 16; O2SAT 95
--- NOTE | 2023-02-17 23:32 | ED_ITS ---
HPI - Abdominal Pain General Chief Complaint: Abdominal Pain Stated Complaint: Here t, Worsening Sx Time Seen by Provider: 02/17/23 21:00 Source: patient Mode of arrival: Ambulatory History of Present Illness HPI narrative: Patient is a 57-year-old male without past medical history returning for the 2nd time in 15 hours for abdominal pain. I saw and evaluated him early this morning for severe abdominal pain. He had an ultrasound CT and blood work. All were negative. Discharged home with abdominal pain and nausea medication but no pain medication. He presents again today with severe abdominal pain unbearable bent over. He is instantly given Toradol and Dilaudid which comes pain. No nausea or vomiting. He denies any fever. Pain is much better after medication. Related Data Home Medications Medication Instructions Recorded Confirmed beclomethasone dipropionate 80 80 mcg inhalation DAILY 01/20/19 12/05/21 mcg/actuation HFA breath activated aerosol rivaroxaban 10 mg tablet 10 mg PO DAILY 12/04/21 12/05/21 omalizumab 150 mg/mL subcutaneous 150 mg SUBCUT Q6W 12/05/21 12/05/21 syringe Previous Rx's Medication Instructions Recorded atovaquone 250 mg-proguanil 100 mg See Rx Instructions PO .COMPLEX 12/05/21 tablet #30 tabs scopolamine base 1 mg over 3 days 1 patch transdermal Q3D PRN motion 04/03/22 transdermal patch sickness #24 ea hydrocodone 5 mg-acetaminophen 325 1 tab PO Q6H PRN pain #10 tabs 02/17/23 mg tablet ondansetron 4 mg disintegrating 4 mg PO Q8H PRN nausea and 02/17/23 tablet vomiting #10 tabs Allergies Allergy/AdvReac Type Severity Reaction Status Date / Time No Known Drug Allergies Allergy Verified 01/20/19 09:59 Review of Systems Review of Systems ROS Unobtainable: All systems reviewed & are unremarkable except as noted in HPI and below Patient History Medical History Screening for ischemic heart disease Screening for lipid disorders Screening PSA (prostate specific antigen) Encounter for medical examination to establish care (~04/25/18) Encounter for screening colonoscopy Travel advice encounter Pulmonary embolism DVT (deep venous thrombosis) Social History household members: family Smoking Status: Never smoker Smoking Status: Never smoker alcohol intake frequency: a few times a month Substance Use Type: does not use Exam Initial Vital Signs Initial Vital Signs: Vital Signs Temperature 98.1 F 02/17/23 20:31 Pulse Rate 49 L 02/17/23 20:31 Respiratory Rate 16 02/17/23 20:31 Blood Pressure 132/91 H 02/17/23 20:31 Pulse Oximetry 100 02/17/23 20:31 Oxygen Delivery Method Room Air 02/17/23 20:31 GENERAL: Alert 57-year-old male in moderate pain and in no acute distress. HEENT: Head atraumatic,EOMI, pupils reactive, face symmetric, moist mucous membranes CARDIOVASCULAR: Regular rate and rhythm without murmurs, rubs or gallops. RESPIRATORY: Breath sounds equal bilaterally, no wheezes rales or rhonchi. ABDOMEN: Soft, no right upper quadrant pain negative Mensah sign no epigastric pain no lower abdominal pain soft nondistended EXTREMITIES: Normal range of motion, no clubbing or edema. Neurovascularly intact NEUROLOGICAL: Alert and oriented x4.Normal gait and speech. SKIN: Warm, dry, no laceration, no petechiae, no rashes or lesions. Course Orders Ordered: Discontinued Medications Hydrocodone Bitart/Acetaminophen (Hydrocodone/Acet 5/325 Prepack) 1 bottle MISC SEEINSTR ONE Stop: 02/17/23 23:33 Last Admin: 02/17/23 23:47 Dose: 1 bottle Documented By: RODNEY Hydromorphone HCl (Hydromorphone 1 Mg Inj) 1 mg IV NOW ONE Stop: 02/17/23 20:52 Last Admin: 02/17/23 21:14 Dose: 1 mg Documented By: PAOLA Ketorolac Tromethamine (Ketorolac 30 Mg/Ml Vial) 15 mg IV NOW ONE Stop: 02/17/23 20:51 Last Admin: 02/17/23 21:14 Dose: 15 mg Documented By: PAOLA Ondansetron HCl (Ondansetron 4 Mg Odt) 4 mg PO NOW PRN PRN Reason: Nausea And Vomiting Ondansetron HCl (Ondansetron 4 Mg/2 Ml Inj) 4 mg IV NOW PRN PRN Reason: Nausea And Vomiting Last Admin: 02/17/23 21:13 Dose: 4 mg Documented By: PAOLA Vital Signs Vital signs: Vital Signs - 8 hr 02/17/23 23:16 Pulse Rate 55 L Respiratory Rate 16 Blood Pressure 104/64 Pulse Oximetry 95 Oxygen Delivery Method Room Air MDM - Abdominal Pain Lab Data 02/17/23 21:01 02/17/23 21:01 Labs: Lab Results 02/17/23 Range/Units 21:01 WBC 6.4 (4.5-11.0) X10^3/uL RBC 4.34 L (4.5-5.9) X10^6/uL Hgb 13.1 L (13.5-17.5) g/dL Hct 38.1 L (41-53) % MCV 87.8 (80-100) fL MCH 30.3 (26-34) PG MCHC 34.5 (30-36) % RDW 13.0 (11.6-14.8) % Plt Count 226 (150-400) X10^3/uL Neut % (Auto) 63.7 (50-75) % Lymph % (Auto) 23.4 L (25-40) % Potter % (Auto) 11.9 (3-14) % Eos % (Auto) 0.7 L (2-4) % Baso % (Auto) 0.3 (0-2) % Neut # (Auto) 4100 (7313-3006) /uL Lymph # (Auto) 1500 (9804-5097) /uL Potter # (Auto) 800 (0-900) /uL Eos # (Auto) 0 (0-450) /uL Baso # (Auto) 0 (0-100) /uL PT 18.3 H (10.1-12.7) SECONDS INR 1.6 H (0.9-1.3) Sodium 134 L (137-145) mmol/L Potassium 3.3 L (3.4-5.1) mmol/L Chloride 105 (98-107) mmol/L Carbon Dioxide 21 L (22-32) mmol/L BUN 14 (9-20) mg/dL Creatinine 0.94 (0.66-1.25) mg/dL Estimated GFR > 60 (>60) mL/min BUN/Creatinine Ratio 14.9 (6-22) Glucose 110 H (70-100) mg/dL Calcium 9.6 (8.4-10.2) mg/dL Total Bilirubin 0.5 (0.2-1.3) mg/dL AST 28 (17-59) IU/L ALT 39 (<50) IU/L Alkaline Phosphatase 62 (38-126) U/L Total Protein 6.6 (6.3-8.2) g/dL Albumin 3.6 (3.5-5.0) g/dL Globulin 3.0 (1.7-4.1) g/dL Albumin/Globulin Ratio 1.2 (1.0-2.8) Lipase 61 (23-300) U/L Point of care testing: Urine Dip Bedside Urine Glucose Negative Bedside Urine Bilirubin - Negative Bedside Urine Ketone - Negative Urine Specific [place] 1.005 Bedside Urine Occult Blood - Negative Bedside Urine pH 6.5 Bedside Urine Protein - Negative Bedside Urine Urobilinogen - Negative Bedside Urine Nitrite - Negative Bedside Urine Leukocytes - Negative Esterase ECG Data Interpretation: Sinus rate 49 [place] interval 144 QRS [address] changes no T-wave inversions MDM Narrative Medical decision making narrative: Patient 57-year-old male presenting today for the 2nd time with severe abdominal pain. He would complete workup early this morning that was negative. Blood work again today is reassuring with little change from earlier. Pain is incidentally resolved with medication. Abdomen remains soft not acute there are no peritoneal signs. At this time there is no need for any sort of repeat imaging. He was not discharged home with any sort of pain medication. He is not actively vomiting. At this time supportive care only, recommend outpatient follow-up Discharge Plan Departure Patient Disposition: Home Clinical Impression: Abdominal pain Instructions: DI for Abdominal Pain-Adult Activity Restrictions/Additional Instructions: *You have been diagnosed with abdominal pain *What to do: I am sorry urine such bad pain unfortunately the emergency department has done everything we can to. There is no life-threatening abnormalities. You may still require further outpatient workup and referrals. *Continue to take medications as directed Continue Zofran as prescribed [facility] 1-2 tablet every 6 hours if needed for severe pain --> [facility] Motrin 600 mg every 6 hours if needed for [id number] pain *Follow up with your primary care provider in 2-3 days or call [phone] *Return to ER if you should have pain that is not controlled with medications at home and persisting, passing out, persistent vomiting or any new, worsening or concerning symptoms CONTROLLED SUBSTANCE DISCHARGE (Narcotoic/benzodiazepine/Flexeril/Phenergan) 1. You have been prescribed narcotic medications, it does have acetaminophen/Tylenol/paracetamol in it, DO NOT TAKE MORE THAN 4,00mg in 24 hours of Tylenol. TRAMADOL DOES NOT CONTAIN TYLENOL 2. Please understand that we cannot provide further refills of narcotics, benzodiazepines or controlled substances through the ED and her pain management will need to be through your provider. 3. While on these medications you cannot drive or operate heavy machinery. 4. You cannot sign legal documents or perform any duties such as this. 5. As long as you're taking opiate pain medications he should also be taking a stool softener such as Colace, Dulcolax, MiraLAX or prune juice, to help avoid constipation. Prescriptions: New hydrocodone-acetaminophen 5-325 mg tablet 1 tab PO Q6H PRN (Reason: pain) Qty: 10 0RF No Action scopolamine base 1 mg over 3 days patch 3 day 1 patch transdermal Q3D PRN (Reason: motion sickness) Qty: 24 0RF ondansetron 4 mg tablet,disintegrating 4 mg PO Q8H PRN (Reason: nausea and vomiting) Qty: 10 0RF beclomethasone dipropionate 80 mcg/actuation Hfa Aerosol Breath Activated 80 mcg INHALATION DAILY Rx Instructions: 2 puffs omalizumab 150 mg/mL syringe 150 mg SUBCUT Q6W atovaquone-proguanil 250-100 mg tablet See Rx Instructions PO .COMPLEX Qty: 30 0RF Rx Instructions: take 1 tab once daily x1 day before exposure, during time in area, and x7 days after leaving area PO rivaroxaban 10 mg tablet 10 mg PO DAILY Rx Instructions: Take 1 tablet (10 mg) by mouth daily. REFILL 3. 06/12/2021 Referrals: Sonam Cisse PA-C [Primary Care Provider] - Stand Alone Forms: Patient Portal/API
[2023-02-17] MEDS: HYDROCODONE/ACET 5/325 PREPACK 1 BOTTLE MISC (23:47)
== END 2023-02-17 23:49 | disposition home or self-care (01) ==
PROVIDERS: Emergency Provider Emergency Medicine; PCP Physician Assistant
DX: R10.9 Unspecified abdominal pain (principal)
CPT/HCPCS: 36415; 80053; 81003; 83690; 85025; 85610; 93005; J1170; J1885; J2405

== ENCOUNTER → 2023-11-27 10:39 | Outpatient (CLI) | payer BC, SELFPAY ==
--- NOTE | 2023-11-27 10:41 | DI.US.S_ITS ---
PROCEDURE: US ABDOMEN LIMITED INDICATIONS: Inguinal hernia evaluation TECHNIQUE: Real-time focused scanning was performed of the abdomen, with image documentation. COMPARISON: [facility], CT, CT ABDOMEN PELVIS W CON, 02/17/2023, 6:24. [facility], US, US ABDOMEN LIMITED, 02/17/2023, 7:12. FINDINGS: There is a right groin hernia seen, with the hernia contents measuring 2.3 x 0.8 x 1.5 cm. The hernia defect measures up to 8 mm. Motion of the hernia can be seen with Valsalva maneuver. IMPRESSION: Right groin hernia seen by ultrasound. If not already done, please consider surgical consultation. Dictated by: Gera Harp M.D. on 11/27/2023 at 18:53 Approved by: Gera Harp M.D. on 11/27/2023 at 18:55
== END ==
LOC: US 10:40
PROVIDERS: PCP Family Medicine; Referring Provider Family Medicine; Visit Provider Family Medicine
DX: K45.8 Other specified abdominal hernia without obstruction or gangrene (principal); R10.30 Lower abdominal pain, unspecified
CPT/HCPCS: 76705

== ENCOUNTER → 2024-10-07 09:26 | Outpatient (CLI) | payer BC, SELFPAY ==
[2024-10-07 19:19] LABS: Add Manual Diff / Slide Review NO; Basophils Absolute Auto 0 /uL (0-100); Basophils Percent Auto 0.7 % (0-2); Eosinophils Absolute Auto 100 /uL (0-450); Eosinophils Percent Auto 2.1 % (2-4); Hematocrit 38.5 % (41-53); Hemoglobin 12.7 g/dL (13.5-17.5); Lymphocytes Absolute Auto 900 /uL (1100-4500); Lymphocytes Percent Auto 27.8 % (25-40); Mean Corpuscular HGB Conc 32.9 % (30-36); Mean Corpuscular Hemoglobin 29.5 PG (26-34); Mean Corpuscular Volume 89.5 fL (80-100); Monocytes Absolute Auto 400 /uL (0-900); Monocytes Percent Auto 11.7 % (3-14); Neutrophils Absolute Auto 1800 /uL (1500-7000); Neutrophils Percent Auto 57.7 % (50-75); Platelet Count 210 X10^3/uL (150-400); Red Blood Cell Count 4.31 X10^6/uL (4.5-5.9); Red Cell Distribution Width 13.8 % (11.6-14.8); White Blood Cell Count 3.2 X10^3/uL (4.5-11.0)
[2024-10-07 19:25] LABS: Alanine Aminotransferase 75 IU/L (<50); Albumin 3.7 g/dL (3.5-5.0); Albumin Globulin Ratio 1.4 (1.0-2.8); Alkaline Phosphatase 68 U/L (38-126); Aspartate Aminotransferase 80 IU/L (17-59); BUN Creatinine Ratio 16.5 (6-22); Bilirubin Total 0.5 mg/dL (0.2-1.3); Blood Urea Nitrogen 17 mg/dL (9-20); Calcium 9.3 mg/dL (8.4-10.2); Carbon Dioxide 26 mmol/L (22-32); Chloride 106 mmol/L (98-107); Cholesterol 199 mg/dL (140-199); Estimated Glomerular Filt Rate > 60 mL/min (>60); Globulin 2.7 g/dL (1.7-4.1); Glucose 100 mg/dL (70-99); HDL Cholesterol 57 mg/dL (40-60); HEMOLYSIS < 15 (0-50); LDL Cholesterol Calculated 132 mg/dL (<100); Potassium 4.5 mmol/L (3.4-5.1); Sodium 137 mmol/L (137-145); Total Protein 6.4 g/dL (6.3-8.2); Triglycerides 50 mg/dL (35-150)
[2024-10-07 19:56] LABS: Prostate Specific Antigen Scrn 0.441 ng/mL (0.1-4.0)
== END ==
PROVIDERS: PCP Family Medicine; Visit Provider Family Medicine
DX: Z12.5 Encounter for screening for malignant neoplasm of prostate (principal); Z79.01 Long term (current) use of anticoagulants; Z13.6 Encounter for screening for cardiovascular disorders; Z13.1 Encounter for screening for diabetes mellitus; Z13.0 Encounter for screening for diseases of the blood and blood-forming organs and certain disorders involving the immune mechanism
CPT/HCPCS: 80053; 80061; 85025; G0103

== ENCOUNTER → 2024-10-28 13:01 | Outpatient (CLI) | payer BC, SELFPAY ==
[2024-10-28 20:02] LABS: Hematocrit 42.4 % (41-53); Hemoglobin 14.3 g/dL (13.5-17.5); Mean Corpuscular HGB Conc 33.8 % (30-36); Mean Corpuscular Hemoglobin 30.1 PG (26-34); Mean Corpuscular Volume 89.2 fL (80-100); Platelet Count 244 X10^3/uL (150-400); Red Blood Cell Count 4.75 X10^6/uL (4.5-5.9); Red Cell Distribution Width 13.5 % (11.6-14.8); White Blood Cell Count 4.8 X10^3/uL (4.5-11.0)
[2024-10-28 20:13] LABS: Alanine Aminotransferase 40 IU/L (<50); Albumin Globulin Ratio 1.5 (1.0-2.8); Alkaline Phosphatase 74 U/L (38-126); Aspartate Aminotransferase 35 IU/L (17-59); Bilirubin Total 0.5 mg/dL (0.2-1.3); Bilirubin Unconjugated 0.2 mg/dL (0.0-1.1); Globulin 2.7 g/dL (1.7-4.1); HEMOLYSIS < 15 (0-50); Total Protein 6.7 g/dL (6.3-8.2)
[2024-10-28 20:15] LABS: HEMOLYSIS < 15 (0-50)
[2024-10-28 20:17] LABS: Iron 109 ug/dL (49-181)
[2024-10-28 20:35] LABS: Percent Iron Saturation 41 % (20-50); Total Iron Binding Capacity 263 ug/dL (261-462)
[2024-10-28 20:47] LABS: Ferritin 55 ng/mL (18-464)
[2024-10-28 20:53] LABS: Neutrophils Absolute Manual 3408 /uL (3000-5900); RBC Morphology Normal Morphology; Total Cells Counted 100
[2024-10-28 21:20] LABS: Transferrin 212 mg/dL (206-381)
[2024-10-28 21:38] LABS: Folate 11.9 ng/mL (2.76-20.0); Vitamin B12 511 pg/mL (239-931)
[2024-10-29 23:12] LABS: HBsAg Screen Negative (Negative); Hepatitis A Antibody IgM Negative (Negative); Hepatitis B Core Antibody IgM Negative (Negative); Hepatitis C Antibody Non Reactive (Non Reactive)
== END ==
PROVIDERS: PCP Family Medicine; Visit Provider Family Medicine
DX: K75.9 Inflammatory liver disease, unspecified (principal); R73.9 Hyperglycemia, unspecified; E78.2 Mixed hyperlipidemia; D72.819 Decreased white blood cell count, unspecified; D64.9 Anemia, unspecified
CPT/HCPCS: 80074; 80076; 82390; 82607; 82728; 82746; 83540; 83550; 85025; 86038

== ENCOUNTER → 2024-11-02 11:37 | Outpatient (CLI) | payer BC, SELFPAY ==
--- NOTE | 2024-11-02 12:00 | DI.MRI.S_ITS ---
PROCEDURE: MR KNEE LT WO CON INDICATIONS: persistent left knee pain, post PT TECHNIQUE: Noncontrast sagittal PD fast spin echo and T2 fast spin echo with fat saturation, sagittal 3-D FLASH with fat saturation; coronal T1 spin echo and PD fast spin echo with fat saturation, and axial PD fast spin echo with fat saturation through the knee. COMPARISON: None. FINDINGS: Image quality: Excellent. Menisci: Abnormal appearance of the medial meniscus with heterogeneous signal in the posterior horn suspicious for complex tear with free edge fraying, posterior and medial meniscocapsular separation. On the coronal images the mid body of the medial meniscus is mildly extruded medially. Lateral meniscus is grossly normal. Cruciate ligaments: Mild increased T2 weighted signal and thinning of the mid and distal anterior cruciate ligament suggests injury/strain without complete tear or retraction. Posterior cruciate ligament is normal. Medial structures: The medial collateral ligament appears intact. The semimembranosus tendon insertion is normal. Visualized portions of the pes anserinus tendons appear normal. No abnormal bursal fluid. Lateral structures: Mild increased T2 weighted signal of the distal popliteus tendon mild injury/strain. The lateral collateral ligament, long and short heads of the biceps femoris tendon appear intact. Iliotibial band appears normal. Anterior structures: Mild patella Kalee. The quadriceps and patellar tendons appear intact. Patellar alignment is otherwise normal. No femoral trochlear dysplasia or ventral trochlear prominence. No edema in the infrapatellar fat pad. Bones and cartilage: [id number] diffuse cartilaginous thinning with some irregularity in the medial compartment. Lateral and patellofemoral compartment cartilage within normal limits for age. No bone marrow contusions or fractures. Joint space: Small popliteal cyst measures up to approximately 5.5 cm cc by 1 cm AP by 1.5 cm transverse maximal dimensions. No significant knee joint effusion. IMPRESSION: Posterior horn medial meniscus tear with meniscocapsular separation. Mild injury/strain distal anterior cruciate ligament without tear. Mild to moderate cartilage thinning in the medial compartment. Small popliteal cyst. Dictated by: Travis Dewey M.D. on 11/03/2024 at 15:41 Approved by: Travis Dewey M.D. on 11/03/2024 at 16:13
== END ==
PROVIDERS: PCP Family Medicine; Referring Provider Family Medicine; Visit Provider Family Medicine
DX: S83.242A Other tear of medial meniscus, current injury, left knee, initial encounter (principal); M71.22 Synovial cyst of popliteal space [Baker], left knee; M25.562 Pain in left knee
CPT/HCPCS: 73721

== ENCOUNTER 2025-02-10 07:27 | Day surgery (SDC) | payer BC, SELFPAY ==
[2025-02-04 12:41] VITALS: BMI 26.1
[2025-02-10 08:10] VITALS: BP 115/73; PULSE 58; RESP 17; TEMP 36.2; O2SAT 98
[2025-02-10 08:11] VITALS: BMI 26.1
--- NOTE | 2025-02-10 08:16 | PM.PREOP ---
Pre-operative Note COVID-19 COVID-19 status: Not tested Interval Note History & Physical reviewed/Exam performed by Physician: Yes Changes to H&P: No
[2025-02-10] MEDS: LACTATED RINGERS 1,000 ML 120 ML IV ×2 (08:25→09:27)
--- NOTE | 2025-02-10 09:05 | SUR.OPER ---
Supine on padded OR bed, head on pillow, arms secured on padded arm boards at <90 degrees abduction, legs uncrossed, safety belt at torso, tape over blanket over non operative lower leg, operative leg with arthroscopy knee positioner. Surgeon in room at time of positioning, all pressure points padded and covered.
[2025-02-10] MEDS: SODIUM CHLORIDE IRRIG SOLUTION 6,000 ML, EPINEPHrine 6 MG IRR (09:18)
[2025-02-10 09:35] VITALS: BP 110/65; PULSE 72; RESP 16; TEMP 36.1; O2SAT 100
--- NOTE | 2025-02-10 09:41 | P.OP_ITS ---
Operative Date/Time/Diagnoses Date of procedure: 02/10/25 Time of procedure: 09:18 Pre-op diagnosis: left knee medial meniscus tear Post-op diagnosis: same Procedure & Clinicians Procedure: left knee partial medial menisectomy Same procedure(s) as scheduled: Yes Surgeon: Katt Leary Assisted?: Yes Supervisor [employer]: [employer] Anesthesia Type: General Operative Notes Findings: see below Closure Type: primary Specimen(s): none sent Applied: none Estimated Blood Loss (mL): 5 Blood products transfused: none Tourniquet time (min): 20 Procedure in detail: Preoperative diagnosis: Left Medial meniscus tear Procedure performed: 1) left knee parital medial menisectomy Postoperative diagnosis: same as above Primary Surgeon: Katt Leary, DO Supervisor [employer]:? [employer] Anesthesia: General LMA EBL: 5 ml Tourniquet: ?20 minutes @ 250 mmHg Implants: None Indication For Surgery: ?See Pre-op H&P Examination Under Anesthesia: ROM equal to the contralateral side. Grade I Mike Stable to varus and valgus stressing at 0 & 30 degrees. No mechanical sensations Diagnostic Arthroscopy: Loose bodies: None Synovium: okay Patella cartilage: intact? Trochlear cartilage: intact? Medial femoral condyle cartilage: intact Medial tibial plateau cartilage: : intact? Medial meniscus:? posterior horn tear - radial ACL: intact PCL: intact Lateral femoral condyle cartilage: intact Lateral tibial plateau cartilage: intact Lateral meniscus: intact Procedure in Detail: The patient was met in the pre-operative hold area. Consent was verified and operative extremity was signed. The patient was brought back to the operating room. The patient was placed supine position on the operating table. A general anesthetic was administered. A well-padded tourniquet was placed on the thigh. An exam under anesthesia was performed with the above findings.? The lower extremity was then prepped and draped in the usual sterile fashion. A timeout was performed per protocol. All members of the operating team were in agreement, and we proceeded. The Esmarch was used to exsanguinate the limb and the tourniquet was inflated. An 11 blade scalpel was used to make an anterolateral arthroscopic portal. The arthroscope was introduced into the knee and the anteromedial portal was created under direct visualization using needle localization. A diagnostic arthroscopy was performed with the above-stated findings.? The medial meniscus tear was was debrided and remaining meniscus was probed and found to be stable. The wounds were irrigated.? The incisions were closed with Nylon sutures. ?A sterile dressing was applied. The patient was awakened and transferred to the recovery room in stable condition. ?12 cc of 0.25% Marcaine was infiltrated at the end of the case. An assistant teacher primary was utilized for positioning, and closing. Postoperative Plan: Same day discharge Weightbearing as tolerated. Remove dressing in [address]aids over incision sites. Physical therapy to start after surgery. Follow up at 2 weeks for suture removal. Complications: none Post-operative Condition: stable Disposition: PACU
[2025-02-10 09:43] VITALS: BP 115/65; PULSE 77; RESP 17; TEMP 36.1; O2SAT 98
[2025-02-10 09:51] VITALS: BP 116/70; PULSE 68; RESP 14; TEMP 36.2; O2SAT 99
== END 2025-02-10 10:18 | disposition home or self-care (01) ==
PROVIDERS: PCP Family Medicine; Referring Provider Family Medicine; Visit Provider Orthopaedic Surgery
PROC: (CPT 29870; principal; 2025-02-10 08:45)
DX: S83.242A Other tear of medial meniscus, current injury, left knee, initial encounter (principal); Z86.711 Personal history of pulmonary embolism; Z79.01 Long term (current) use of anticoagulants
CPT/HCPCS: 29881; J0165; J0689; J1100; J2250; J2405; J2704; J3010; J7120